=== PATIENT | male | born 1995 | race Caucasian/White ===

== ENCOUNTER 2022-12-30 20:31 | Emergency (ER) | payer OTHER, SELFPAY ==
[2022-12-30 20:32] VITALS: BP 140/89; PULSE 118; RESP 16; TEMP 37.1; O2SAT 96; BMI 25.2
--- NOTE | 2022-12-30 22:40 | EX.ED.GUMALE ---
HPI History of Present Illness Chief Complaint: Male Pain/Injury Narrative Narrative: 27-year-old male presenting with left groin pain. He states he started having this this morning. He states he was working on the roof which is angled and noticed that his groin started to hurt. He denies any direct trauma. No numbness or tingling. He states he does have a superficial abrasion to the left knee and wondered if that maybe was connected to the groin pain. Patient went to urgent care today where they told him to come to the emergency room out of concern for blood clot. Patient has no history of DVT/PE and no risk factors. No recent surgery, bedridden, mobilize, history of cancer, exogenous hormone use. Patient denies any chest pain or shortness of breath. No fevers or chills. PFSH PFSH Allergy/AdvReac Type Severity Reaction Status Date / Time No Known Allergies Allergy Verified 12/30/22 20:32 ROS ROS ED Constitutional Constitutional ED: Denies chills, fever(s) or sweats Eyes Eyes: Denies blurry vision or change in vision ENT ENT ED: Denies ear pain or sore throat Cardiovascular Cardiovascular: Denies chest pain, palpitations or racing heartbeat Respiratory/Chest Respiratory/Chest: Denies cough, dyspnea or sputum Gastrointestinal Gastrointestinal: Denies abdominal pain, constipation, diarrhea, nausea or vomiting Genitourinary Genitourinary ED: Denies dysuria, hematuria or urinary frequency Musculoskeletal Musculoskeletal: Denies arthralgias, myalgias or neck pain Integumentary Reports Abrasions; Denies abscess or rash Neurologic Neurologic: Denies headache(s), paresthesias or weakness Psychiatric Psychiatric: Denies anxiety, depression, suicidal ideation or suicidal thoughts Endocrine Endocrinology: Denies polydipsia or polyuria EXAM Physical Exam Const Vital Signs: 12/30/22 20:32 Temperature 98.7 F Temperature Source Temporal Pulse Rate 118 H Respiratory Rate 16 Blood Pressure 140/89 H Blood Pressure Mean 106 Pulse Ox 96 Positive well nourished General Appearance ED: NAD HEENT Reports moist mucous membranes normocephalic Eyes PERRL and EOMs intact bilaterally Resp normal respiratory effort and clear to auscultation bilaterally Auscultation: Negative for rales, rhonchi or wheezes Cardio regular rate Rate: tachycardic Extremity Extremity Narrative: Tenderness to palpation to the left medial thigh. There is no ecchymosis, bruising, rash, lymphadenopathy. It is minimally tender. There is also noted to be a superficial abrasion over the inferior patella. There is no cellulitis here, bruising, edema. Full range of motion of the left knee is exhibited. No ligamentous laxity. Neuro oriented x3 and CN's II-XII intact bilaterally Psych mental status grossly normal MDM MDM MDM Narrative Medical decision making narrative: Patient presenting with inguinal groin pain. Most likely this is due to musculoskeletal pain. He does not have any risk factors for DVT/PE. Wells criteria -2. Patient counseled likely musculoskeletal and use Tylenol and ibuprofen for pain. Ice, heat, elevate. Return precautions discussed. Impression: 1. Muscle strain 2. Superficial abrasion Discharge Plan Triage Chief Complaint: Male Pain/Injury ED Provider: Nathan Kulkarni Dx/Rx/DC Orders Primary Care Provider: Care Physician,No Primary Referrals: Care Physician,No Primary [Primary Care Provider] -
== END 2022-12-30 23:14 | disposition home or self-care (01) ==
PROVIDERS: Emergency Provider Student in an Organized Health Care Education/Training Program; Visit Provider Student in an Organized Health Care Education/Training Program
DX: S39.011A Strain of muscle, fascia and tendon of abdomen, initial encounter (principal); S80.212A Abrasion, left knee, initial encounter; X58.XXXA Exposure to other specified factors, initial encounter
CPT/HCPCS: 99282